=== PATIENT | female | born 1990 | race African-American/Black ===

== ENCOUNTER 2017-03-19 19:45 | Emergency (ER) | payer MEDICAID ==
[2017-03-19 20:14] VITALS: BP 130/70
[2017-03-19] MEDS ORDERED: cefTRIAXone 1 GM, Lidocaine 1% 2.1 ML IM ONE ×2 (20:23)
--- NOTE | 2017-03-19 20:31 | EDM.PDOC ---
ED HPI GENERAL MEDICAL PROBLEM - General Chief Complaint: Genitourinary Problem Stated Complaint: UTI Symptoms Time Seen by Provider: 03/19/17 19:56 Source of Information: Reports: Patient History Limitations: Reports: No Limitations - History of Present Illness INITIAL COMMENTS - FREE TEXT/NARRATIVE: Patient comes in with recurrent complaints of UTI. She has been seeing Camille Almeida for this and she was originally prescribed Bactrim, this made her immediately ill with uspet stomach, macrobid caused horrible diarrhea, and the oral rocephin she started on today has not been effective in her opinion as her urinary symptoms returned. She describes her symptoms as urinary frequency and urgency. No fever. Patient is 7-8 weeks . - Related Data Allergies Allergy/AdvReac Type Severity Reaction Status Date / Time No Known Allergies Allergy Verified 03/19/17 20:05 Home Meds: Home Meds Vit #76/Iron,Carb/Fa [Prenatabs Rx] 1 tab DAILY 05/03/15 [History] Cephalexin 500 mg PO BID 03/19/17 [History] Past Medical History - Past Health History Medical/Surgical History: Denies Medical/Surgical History Genitourinary History: Reports: UTI, Recurrent [employer] History: Reports: Social & Family History - Tobacco Use Smoking Status *Q: Former Smoker Used Tobacco, but Quit: Yes Month Tobacco Last Used: 2 weeks ago Second Hand Smoke Exposure: No - Recreational Drug Use Recreational Drug Use: No ED ROS GENERAL - Review of Systems Review Of Systems: See Below Constitutional: Reports: Chills HEENT: Reports: No Symptoms Respiratory: Reports: No Symptoms Cardiovascular: Reports: No Symptoms Endocrine: Reports: No Symptoms GI/Abdominal: Reports: No Symptoms : Reports: Urgency, Urinary Retention Musculoskeletal: Reports: No Symptoms Skin: Reports: No Symptoms Neurological: Reports: No Symptoms ED EXAM, RENAL/ - Physical Exam Exam: See Below Exam Limited By: No Limitations General Appearance: Alert, WD/WN, No Apparent Distress Eye Exam: Bilateral Eye: EOMI, PERRL Head: Atraumatic, Normocephalic Neck: Normal Inspection, Supple, Non-Tender Respiratory/Chest: No Respiratory Distress, Lungs Clear, Normal Breath Sounds, No Accessory Muscle Use, Chest Non-Tender Cardiovascular: Normal Peripheral Pulses, Regular Rate, Rhythm, No Edema, No Gallop GI/Abdominal: Normal Bowel Sounds, Soft, Non-Tender Extremities: Normal Inspection, Normal Range of Motion, Non-Tender Neurological: Alert, Oriented, CN II-XII Intact, Normal Cognition, Normal Gait, Normal Reflexes, No Motor/Sensory Deficits Psychiatric: Normal Affect, Anxious Skin Exam: Warm, Dry, Intact Lymphatic: No Adenopathy Course - Vital Signs Last Recorded V/S: Last Vital Signs Temp 36.6 C 03/19/17 20:07 Pulse 74 03/19/17 20:07 Resp 16 03/19/17 20:07 BP 130/70 03/19/17 20:07 Pulse Ox 97 03/19/17 20:07 - Orders/Labs/Meds Meds: Medications Discontinued Medications Generic Name Dose Route Start Last Admin Trade Name [place] PRN Reason Stop Dose Admin Ceftriaxone Sodium 1 gm/ 0 gm 03/19/17 20:23 03/19/17 20:27 Lidocaine HCl 2.1 ml IM 03/19/17 20:24 1 inj ONETIME ONE Administration Departure - Departure Time of Disposition: 20:45 Disposition: Home, Self-Care 01 Condition: Good Clinical Impression: UTI, Urinary tract infectious disease - Discharge Information Instructions: Urinary Tract Infection, Adult, [id number] Referrals: Camille Almeida PA-C [Primary Care Provider] - Forms: ED Department Discharge Additional Instructions: Make sure to drink plenty of water. You need to contact [facility] late Wednesday afternoon if they have not been in touch with you regarding the susceptibility results from the culture. This is the only sure way to know which antibiotic will be effective for you. I have given you a prescription for augmentin 250 mg tablet four times per day. To diminish the chance of an upset stomach take with a cracker or a light meal. Take some probiotics and yogurt to prevent any bowel infection related to antibiotic use, as well as a yeast infection. Please call with any questions or concerns. - Problem List & Annotations (1) UTI, Urinary tract infectious disease SNOMED Code(s): 10649422 Code(s): N39.0 - URINARY TRACT INFECTION, SITE NOT SPECIFIED Status: Acute Priority: Low - Problem List Review Problem List Initiated/Reviewed/Updated: Yes - Assessment/Plan Assessment:: urinary tract infection Plan: Make sure to drink plenty of water. You need to contact [facility] late Wednesday afternoon if they have not been in touch with you regarding the susceptibility results from the culture. This is the only sure way to know which antibiotic will be effective for you. I have given you a prescription for augmentin 250 mg tablet four times per day. To diminish the chance of an upset stomach take with a cracker or a light meal. Take some probiotics and yogurt to prevent any bowel infection related to antibiotic use, as well as a yeast infection. Please call with any questions or concerns.
== END 2017-03-19 20:42 | disposition home or self-care (01) ==
LOC: SUPCPDRO 19:45 → VM.ED 19:45
DX: O23.41 Unspecified infection of urinary tract in pregnancy, first trimester (principal); Z3A.08 8 weeks gestation of pregnancy; Z79.899 Other long term (current) drug therapy; Z87.891 Personal history of nicotine dependence
CPT/HCPCS: 96372; 99283; J0696